=== PATIENT | female | born 1980 | race Two or more races ===

== ENCOUNTER 2022-02-07 13:25 | Emergency (ER) | payer BC ==
[~2022-02-07] VITALS: Ht 162.6 cm; Wt 68.0 kg
[2022-02-07 13:54] VITALS: BP 157/87
[2022-02-07 14:31] LABS: BASOPHILS % 0.5 % (0.0-2.0); HEMATOCRIT. 35.8 % (36.0-48.0); LYMPHOCYTES % 26.2 % (20.0-50.0); MEAN CORPUSCULAR HEMOGLOBIN 26.7 pg (28.0-32.0); MEAN CORPUSCULAR VOLUME 79.6 fL (81.0-99.0); MEAN PLATELET VOLUME 7.4 fl (7.4-10.4); MONOCYTES % 6.2 % (2.0-8.0); NEUTROPHILS % 65.1 % (40.0-76.0); PLATELET 321 x1000/uL (130-400); RED CELL DISTRIBUTION WIDTH 14.4 % (11.6-14.6)
[2022-02-07 14:45] LABS: CHLORIDE 113 mEq/L (98-107)
[2022-02-07 14:50] LABS: HCG SCREEN NEGATIVE
[2022-02-07] MEDS ORDERED: VALA100044 MT (15:40)
[2022-02-07] MEDS ORDERED: P20 PO (15:40)
[2022-02-07] MEDS ORDERED: POLY15DR31 EACHEYE (15:40)
== END 2022-02-07 16:01 | disposition home or self-care (01) ==
LOC: ER 14:08
DX: G51.0 Bell's palsy (principal); I10 Essential (primary) hypertension
CPT/HCPCS: 36415; 80053; 84703; 85025; 99283